=== PATIENT | male | born 1980 | race Caucasian/White ===

== ENCOUNTER 2024-05-13 13:50 | Emergency (ER) | payer MEDICAID, SELFPAY ==
[2024-05-13 13:52] VITALS: BP 137/97
--- NOTE | 2024-05-13 16:17 | ED.SKININJ ---
HPI-Injury
General
Chief Complaint: Skin Surface Trauma
Source: patient
Exam Limitations: none
Time Seen by Provider: 05/13/24 15:56
Nursing documentation reviewed up to this point in time: agreed with
History of Present Illness-Injury
Initial Injury comments:
43-year-old male states he was working on his car and he broke a bolt he was working on and lacerated his left anterior wrist. He is unsure of his last tetanus immunization.
Past History
Past History
ED Past Medical History: Psychiatric (Takes Adderall)
ED Past Surgical History: None
Social History
Tobacco: Non-smoker
Alcohol: Former
Drug: Former user
Personal: Single
Living: with family
Employment: Employed
Review of Systems
Review of Systems
Allergies reviewed?: Yes
All Other Systems: ROS reviewed and negative except as documented in HPI and ROS
Skin: Reports other (Laceration left wrist)
Neurological: Denies numbness
Phy Exam
Physical Exam
Physical Exam:
PHYSICAL EXAMINATION:
General: no apparent distress, not acutely ill
Neuro: alert and oriented.
Psychiatric: well kept. interactive and cooperative
Musculoskeletal: Moves with ease
Skin: Warm, pink.
Course
Orders/Labs/Results
Orders:
Orders
05/13/24 16:14
Tetanus/Diphth/Acelpertussis [Adacel] 0.5 ml IM .ONCE ONE
Vital Signs
Initial and Last Documented VS:
Initial Vital Signs
Temp Pulse Resp BP Pulse Ox
98.9 F 92 22 137/97 96
05/13/24 13:52 05/13/24 13:52 05/13/24 13:52 05/13/24 13:52 05/13/24 13:52
Last Documented Vital Signs
Temp Pulse Resp BP Pulse Ox
98.9 F 92 22 137/97 96
05/13/24 13:52 05/13/24 13:52 05/13/24 13:52 05/13/24 13:52 05/13/24 13:52
Procedures
Laceration Closure
Left Anterior Wrist:
Status of Wound: clean
Size of Wound in cm: 1.5
Description of Wound Edges: sharp
Preparation: cleaned with saline (and soft betadine scrub)
Type of Closure: Dermabond-skin glue (Reinforced with skin adhesive and Steri-Strips, gauze wrap and universal wrist splint applied)
MDM/Problems Addressed
MDM/Problems Addressed:
43-year-old male states he was working on his car and he broke a bolt he was working on and lacerated his left anterior wrist. He is unsure of his last tetanus immunization.
Most of the wound is relatively superficial there is a slightly deeper aspect in the middle of about 5 mm, after cleansing the area with soft Betadine scrub, wound edges well-approximated with wound glue
Wound adhesive and Steri-Strips applied, gauze wrap applied
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
Tdap updated
*Critical Care Note
Total Time (30-74mins, 75-104mins- exclusive of procedures): Not Applicable
ED Attending Note
-
Portions of this chart may have been created with voice recognition software.� Occasional wrong word or��sound alike� substitutions may have occurred due to the inherent limitations of voice recognition software.
Discharge Plan
Departure
Patient Disposition: Home (Routine Discharge)
Date of Disposition: 05/13/24
Time of Disposition: 16:30
Patient with high blood pressure during this ER visit?: No
Condition: Good
Discharge Problem:
Laceration of left wrist
Instructions: Laceration Repair With Glue (DC)
Prescriptions:
No Action
clonazepam 1 MG tablet
2 mg PO BID
magnesium oxide 500 MG tablet
400 mg PO DAILY
folic acid 1 MG tablet
1 mg PO DAILY
B-complex with vitamin C 1 CAPLET tablet
1 cap PO DAILY
multivitamin with folic acid [Tab-A-Tim] 1 TABLET tablet
1 tab PO DAILY
Referrals:
Doctor, Ariellen [Other] - As needed
NONE,* [Family Provider] -
Activity Restrictions/Additional Instructions:
As we discussed, it takes 10 to 12 days for this area to heal. Keep it clean, dry and covered until then.
Wear the wrist splint as needed for protection when you are working.
Keep the current dressing on until Wednesday. When you remove the dressing Wednesday, you may briefly wet the area in the shower, then afterward pat the strips dry and allow them to air dry or blow them dry and replace a protective dressing cover.
If the strips fall off before 12 days, it is okay simply keep the wound clean dry and covered for 12 days
Seek medical care immediately for signs of infection which may include increasing pain, redness, swelling, pus drainage or red up the arm or fever
Interventions
Interventions:
*Risk Screen - Suicide Last Done: 05/13/24 16:41
*General Assessment Last Done: 05/13/24 13:57
*Neglect/Abuse Screening Last Done: 05/13/24 16:41
ED- Fall Risk Assessment Last Done: 05/13/24 16:41
*ED COVID-19 Vaccine History Last Done: 05/13/24 13:57
*Nursing Disposition Last Done: 05/13/24 16:41
ED-Skin Assessment Last Done: 05/13/24 16:40
Discharge Date and Time
Discharge Date/Time: 05/13/24 16:42
Print Language: UGANDAN
[2024-05-13] MEDS: ADACEL 0.5 ML IM (16:23)
== END 2024-05-13 16:42 | disposition home or self-care (01) ==
LOC: EMR 13:50
PROVIDERS: EMERGENCY PHYSICIAN Emergency Medicine
DX: S61.512A Laceration without foreign body of left wrist, initial encounter (principal); W45.8XXA Other foreign body or object entering through skin, initial encounter; Y93.89 Activity, other specified
CPT/HCPCS: 99283; 29125; 12001; 90715

== ENCOUNTER 2025-01-16 10:33 | Emergency (ER) | payer SELFPAY ==
[2025-01-16 10:44] VITALS: BP 129/70
[2025-01-16 11:43] LABS: COVID-19 Antigen Negative (Negative)
--- NOTE | 2025-01-16 13:14 | ED.GENMED ---
History of Present Illness
General
Chief Complaint: Cold/Flu/URI Symptoms
Source: patient
Exam Limitations: none
Time Seen by Provider: 01/16/25 13:05
Nursing documentation reviewed up to this point in time: agreed with
History of Present Illness
History of Present Illness:
44-year-old male former, smoker presents for fever, cough. Symptoms started 9 days ago, fever max was 104.58 days ago.
Denies N/V/D/C
Past History
Past History
ED Past Surgical History: None
Social History
Tobacco: Non-smoker
Alcohol: Former
Drug: Former user
Personal: Single
Living: with family
Employment: Employed
Review of Systems
Review of Systems
Allergies reviewed?: Yes
All Other Systems: ROS reviewed and negative except as documented in HPI and ROS
Constitutional: Reports fever; Denies chills
EENT: Denies sore throat
Respiratory: Reports cough; Denies trouble breathing
Cardiac: Denies chest pain
ABD/GI: Denies abdominal pain, nausea, vomiting or diarrhea
: Denies dysuria or difficulty voiding
Musculoskeletal: Reports no symptoms
Skin: Reports no symptoms
Neurological: Reports no symptoms
Phy Exam
Physical Exam
Physical Exam:
GENERAL: No acute distress. A&Ox3.
CONSTITUTIONAL: Afebrile.
EYES: clear, conjunctivae normal
ENMT: moist mucus membranes, Pharynx nl
RESPIRATORY: Regular respirations, nonlabored, lungs with rhonchi both bases. Coarse junky cough
CARDIOVASCULAR: Regular rate and rhythm, no murmurs, no rubs.
GI: Soft, nontender, normal BS
MUSCULOSKELETAL: Moves with ease. Well perfused.
SKIN: Warm, dry, pink
PSYCH: Normal mood and affect. Well kept, interactive and appropriate
NEUROLOGIC: Awake, alert and oriented. No focal neurological deficits
Course
Orders/Labs/Results
Orders:
Orders
01/16/25 10:53
COVID-19 Antigen Urgent
Source: Nasal Swab
Influenza A+B Rapid Molecular Urgent
TAMAR Source: Nasal Swab
Specimen Description:
01/16/25 13:19
CR Chest - 2 Views Urgent
Comment:
Reason For Exam: fever, cough
Vital Signs
Initial and Last Documented VS:
Initial Vital Signs
Temp Pulse Resp BP Pulse Ox
97.6 F 87 18 129/70 96
01/16/25 10:44 01/16/25 10:44 01/16/25 10:44 01/16/25 10:44 01/16/25 10:44
Last Documented Vital Signs
Temp Pulse Resp BP Pulse Ox
97.6 F 85 20 128/72 98
01/16/25 10:44 01/16/25 15:04 01/16/25 15:04 01/16/25 15:04 01/16/25 15:04
MDM/Problems Addressed
MDM/Problems Addressed:
44-year-old male former, smoker presents for fever, cough. Symptoms started 9 days ago, fever max was 104.5 8 days ago.
Denies N/V/D/C
2:45 PM:
Chest x-ray shows no acute disease.
COVID-negative
flu negative
Will treat for atypical pneumonia, prescription for Doxycycline sent to his pharmacy
*Critical Care Note
Total Time (30-74mins, 75-104mins- exclusive of procedures): Not Applicable
ED Attending Note
-
Portions of this chart may have been created with voice recognition software.� Occasional wrong word or��sound alike� substitutions may have occurred due to the inherent limitations of voice recognition software.
Discharge Plan
Departure
Patient Disposition: Home (Routine Discharge)
Date of Disposition: 01/16/25
Time of Disposition: 14:51
Patient with high blood pressure during this ER visit?: No
Condition: Good
Covid-19: Negative COVID-19
Discharge Problem:
Atypical pneumonia
Instructions: Quitting smoking for adults, Pneumonia in adults - ED discharge instructions
Prescriptions:
New
doxycycline hyclate 100 mg capsule
100 mg PO BID Qty: 20 0RF
No Action
clonazepam 1 MG tablet
2 mg PO BID
magnesium oxide 500 MG tablet
400 mg PO DAILY
folic acid 1 MG tablet
1 mg PO DAILY
B-complex with vitamin C 1 CAPLET tablet
1 cap PO DAILY
multivitamin with folic acid [Tab-A-Tim] 1 TABLET tablet
1 tab PO DAILY
Referrals:
NONE,* [Family Provider] -
Activity Restrictions/Additional Instructions:
As we discussed, I am treating you for an atypical pneumonia. I sent a prescription to your pharmacy for doxycycline 100 mg to take twice a day for 10 days.
See your family doctor if you are not much improved within the next 2 weeks.
Good luck quitting smoking that is a great decision you made
Interventions
Interventions:
*Risk Screen - Suicide Last Done: 01/16/25 10:44
*General Assessment Last Done: 01/16/25 10:44
*Neglect/Abuse Screening Last Done: 01/16/25 10:44
*ED COVID-19 Vaccine History Last Done: 01/16/25 10:44
*Nursing Disposition Last Done: 01/16/25 15:04
ED- Pulmonary Assessment Last Done: 01/16/25 13:59
Discharge Date and Time
Discharge Date/Time: 01/16/25 15:05
Print Language: MACANESE
[2025-01-16 15:04] VITALS: BP 128/72
== END 2025-01-16 15:05 | disposition home or self-care (01) ==
LOC: EMR 10:33
PROVIDERS: Student in an Organized Health Care Education/Training Program; EMERGENCY PHYSICIAN Student in an Organized Health Care Education/Training Program
DX: J18.9 Pneumonia, unspecified organism (principal); Z11.52 Encounter for screening for COVID-19; Z87.891 Personal history of nicotine dependence
CPT/HCPCS: 99284; 71046; 87502; 87811